=== PATIENT | female | born 1975 | race Caucasian/White ===

== ENCOUNTER → 2017-08-19 | Outpatient (CLI) | payer OTHER, SELFPAY | PROVIDERS: Visit Provider Internal Medicine Gastroenterology | DX: E83.111 Hemochromatosis due to repeated red blood cell transfusions (principal) | CPT/HCPCS: 36415; 81256 ==

== ENCOUNTER → 2017-11-09 07:58 | Outpatient (CLI) | payer OTHER, SELFPAY ==
[2017-11-09 09:45] LABS: Hemoglobin A1C 5.1 % (0.0-7.0)
== END ==
PROVIDERS: Visit Provider Internal Medicine Gastroenterology
DX: R73.09 Other abnormal glucose (principal)
CPT/HCPCS: 36415; 83036

== ENCOUNTER → 2017-12-07 11:03 | Outpatient (POV) | payer OTHER, SELFPAY | PROVIDERS: PCP Emergency Medicine; Visit Provider Physician Assistant | DX: Z00.00 Encounter for general adult medical examination without abnormal findings (principal) ==

== ENCOUNTER → 2018-01-30 18:31 | Outpatient (CLI) | payer OTHER, SELFPAY ==
--- NOTE | 2018-01-30 18:43 | XR_ITS ---
XR foot LT min 3V, XR ankle LT min 3V Ordering Physician: Sylvia Nguyen Patient Age: 42 years: Female HISTORY: ITS.REASON: LT ANKLE PAIN/SWELLING injury Pain throughout the foot with Pain in calcaneus TECHNIQUE: : Left foot 3 views Left ankle 3 views COMPARISON : Previous left foot weightbearing radiograph 05/11/2017. Left ankle study from April 2015 also utilized ==== LEFT FOOT 3 VIEWS No fracture nor dislocation. Toes appear intact. Metatarsals intact. Tarsals satisfactory.. Calcaneus unremarkable. No plantar calcaneal spur. No fracture. There is some mild osseous prominence and exostosis, minimal beaking at the from the dorsal neck of the talus. This is unchanged 2017... Mild soft tissue swelling throughout the foot noted today.Osseous structures at the left foot stable since 2017 studies with no fracture evident ====== LEFT ANKLE 3 VIEWS The left ankle appears stable as well. Intact. No fracture nor dislocation. No significant change since prior study left ankle 2014. The dome of the talus appears intact. Ankle mortise intact. May be slight additional soft tissue swelling about the ankle but is minimal.. Calcaneus appears stable and intact.. Subtalar region appears stable. The small osseous prominent/protuberance at the dorsal neck of talus is unchanged. ... IMPRESSION...... No fracture or dislocation at either the Left Foot nor Left Ankle. Osseous structures appear stable & intact since available previous comparison studies. No acute osseous findings. Understand there is pain at the calcaneus. Calcaneus appears intact on these studies, unchanged Mild soft tissue swelling throughout the foot noted. .
== END ==
PROVIDERS: PCP Emergency Medicine; Visit Provider Nurse Practitioner Family
DX: M79.672 Pain in left foot (principal); M25.572 Pain in left ankle and joints of left foot
CPT/HCPCS: 73610; 73630

== ENCOUNTER → 2019-04-29 09:27 | Outpatient (CLI) | payer OTHER, SELFPAY ==
--- NOTE | 2019-04-29 09:30 | XR_ITS ---
PROCEDURE: XR FOOT LT MIN 3V CLINICAL INDICATION: Left foot pain COMPARISON: [id number] XR foot LT min 3V from 01/30/2018 FINDINGS: No fracture or dislocation. No lytic or blastic change. There is normal mineralization. The joint spaces are well-preserved. No significant degenerative/arthritic changes. No erosive changes evident. Again noted is a small talar beak. There is a small accessory navicular bone a normal variation. There is no evidence of recent or old fracture. Other findings:None. IMPRESSION: No acute findings. Dictated by: Dr. Rizwan Womack MD 04/29/2019 09:[address] Rizwan Womack MD in [place] 04/29/2019 09:51
== END ==
PROVIDERS: PCP Emergency Medicine; Visit Provider Physician Assistant
DX: M79.672 Pain in left foot (principal)
CPT/HCPCS: 73630

== ENCOUNTER → 2019-07-19 10:02 | Outpatient (CLI) | payer OTHER, SELFPAY ==
--- NOTE | 2019-07-19 10:06 | CA_ITS ---
APPROVED REPORT EXAM: Comprehensive 2D, Doppler, and color-flow Echocardiogram Baggage Clerk: Sarah Taylor CRT Ht: 5 ft 0 in Wt: 171lbs BSA: 1.75 BP: 140/85 mmHg Indications: B/S FOR PFO, SOB Echo Enhancing Agent Indication: Rule out Shunt Agent(s) / Amount(s) Used: Agitated Saline 15 cc Comments: NEG B/S 2D Dimensions LVOT 1.73 cm (M/F) 1.5-2.5 M-Mode Dimensions RVDd 1.37 cm (0.9-2.6) LVDd 5.03 cm (3.5-5.7) LVDs 3.28 cm (3.5-5.7) IVSd 0.67 cm (0.6-1.1) PWd 0.38 cm (0.6-1.1) EF (Teich) 63.70% FS 34.80% EDV (Teich) 119.90 mL ESV (Teich) 43.50 mL LV Diastology E/A Ratio 1.45 Mitral Valve MV A Velocity 86.00 (40-130 cm/s) Left Ventricle Left atrium is normal size, left ventricle is normal size, there is no concentric left ventricular hypertrophy, visually estimated ejection fraction 55% with no regional wall motion abnormality, diastolic parameters are within normal range. Right Ventricle Right atrium and right ventricular normal size and contractility. Atria Intra-atrial septum is intact, there is no flow across the interatrial septum, agitated saline contrast study fails to identify intracardiac shunt. Aortic Valve Aortic valve is grossly normal, there is no aortic stenosis or aortic insufficiency. Mitral Valve Mitral valve is grossly normal, there is no mitral stenosis, there is mild mitral regurgitation. Tricuspid Valve Tricuspid valve is grossly normal, there is mild tricuspid regurgitation. Tricuspid regurgitation jet velocity is inadequate for calculation of the right ventricular systolic pressure. Pulmonic Valve Pulmonic valve is poorly visualized. Great Vessels Aortic root is normal size. Pericardium No significant pericardial effusion noted. Conclusion 1. Normal left ventricular size, preserved left ventricular systolic function, visually estimated ejection fraction 55% with no regional wall motion abnormality, diastolic parameters are within normal range. 2. Mild mitral and tricuspid regurgitation. 3. Agitated saline contrast study fails to identify intracardiac shunt. Electronically signed by : Dontae Hare, 07/19/2019 21:41:44
== END ==
PROVIDERS: PCP Emergency Medicine; Visit Provider Physician Assistant
DX: Q21.1 Atrial septal defect (principal); R06.09 Other forms of dyspnea
CPT/HCPCS: 93306

== ENCOUNTER → 2020-01-02 12:58 | Outpatient (CLI) | payer OTHER, SELFPAY ==
--- NOTE | 2020-01-02 13:06 | XR_ITS ---
PROCEDURE: XR KNEE LT 4V CLINICAL INDICATION: Knee pain COMPARISON: [id number] KNEE-LIMITED 2 VIEWS-LT from 10/26/2014 FINDINGS: No fracture or dislocation. No lytic or blastic change. There is normal mineralization. The joint spaces are well-preserved. No significant degenerative/arthritic changes. No erosive changes evident. Other findings:None. IMPRESSION: Negative left knee Dictated by: Dominic Mitchell MD 01/02/2020 13:45 Electronically signed by Dominic Mitchell MD in [place] 01/02/2020 13:45
== END ==
PROVIDERS: PCP Emergency Medicine; Visit Provider Orthopaedic Surgery
DX: M25.562 Pain in left knee (principal)
CPT/HCPCS: 73564

== ENCOUNTER → 2020-01-04 08:30 | Outpatient (CLI) | payer OTHER, SELFPAY ==
--- NOTE | 2020-01-04 08:41 | MR_ITS ---
PROCEDURE: MR KNEE LT WO CON CLINICAL INDICATION: lt knee pain Posterior left knee pain COMPARISON: XR KNEE LT 4V from 01/02/2020 TECHNIQUE: Routine multiplanar multi echo sequences are performed without gadolinium enhancement. FINDINGS: The cruciate ligaments, collateral ligaments, patellar tendon, and quadriceps tendon have an unremarkable appearance. No meniscal tear apparent. There is a small knee joint effusion. No bone marrow edema evident. The patellar cartilage is preserved. No bone marrow edema. IMPRESSION: No evidence of internal derangement. Small knee joint effusion otherwise negative MRI of the left knee. Dictated by: Dominic Mitchell MD 01/06/2020 10:47 Electronically signed by Dominic Mitchell MD in [place] 01/06/2020 10:47
== END ==
PROVIDERS: PCP Emergency Medicine; Visit Provider Orthopaedic Surgery
DX: M25.562 Pain in left knee (principal)
CPT/HCPCS: 73721

== ENCOUNTER → 2020-04-03 13:41 | Outpatient (CLI) | payer OTHER, SELFPAY ==
[2020-04-04 08:30] LABS: Basophils # 0.1 K/mm3 (0-0.2); Eosinophils # 0.3 K/mm3 (0.0-0.4); Eosinophils % 2.5 % (0.1-12.0); Hematocrit 44.6 % (37.0-47.0); Lymphocytes # 2.6 K/mm3 (0.7-4.5); Lymphocytes % 24.7 % (10-50); Mean Corpuscular HGB Conc 33.7 g/dL (31.8-35.4); Mean Corpuscular Hemoglobin 32.7 pg (27.0-31.2); Mean Platelet Volume 9.6 fl (7.4-10.4); Monocytes # 0.5 K/mm3 (0.1-1.0); Monocytes % 4.9 % (1.7-9.3); Neutrophils % 66.9 % (37.0-80.0); Platelet Count 308 K/mm3 (142-424); Red Cell Distribution Width 13.7 % (11.5-17.5); White Blood Count 10.5 K/mm3 (4.8-10.8)
[2020-04-04 08:34] LABS: Chloride 105 mmol/L (98-107); Potassium 4.7 mmoL/L (3.5-5.1); Sodium 138 mmol/L (136-145)
[2020-04-04 08:36] LABS: Alanine Aminotransferase 26 U/L (12-78); Albumin/Globulin Ratio 1.4 (1.1-1.8); Alkaline Phosphatase 69 U/L (38-126); Anion Gap 11.7 mEq/L (5-15); Aspartate Amino Transferase 29 U/L (14-36); Bilirubin,Total 0.5 mg/dl (0.2-1.3); Blood Urea Nitrogen 15 mg/dl (7-17); Carbon Dioxide 26 mmol/L (22.0-30.0); Estimated Glomerular Filt Rate 108 ml/min (>60); GFR (African American) 131 ML/MIN (>60); Globulin 2.8 g/dL (1.3-3.2); Total Protein,Serum 6.8 g/dl (6.3-8.2)
[2020-04-04 08:37] LABS: Calcium 9.5 mg/dl (8.4-10.2); Chol/HDL Ratio 3.6 (1-3.5); Cholesterol 260 mg/dl (140-200); Glucose 93 mg/dl (74-100); HDL Cholesterol 72 mg/dl (40-60)
[2020-04-04 08:48] LABS: Direct LDL Cholesterol 126.17 mg/dL (100-129); Triglycerides 447 mg/dl (30-150)
[2020-04-04 08:54] LABS: Free T4 (Free Thyroxine) 0.97 ng/dl (0.78-2.19)
[2020-04-04 09:08] LABS: Thyroid Stimulating Hormone 1.51 uIU/mL (0.465-4.68)
[2020-04-04 09:33] LABS: Hemoglobin A1C 5.2 % (4.0-6.0)
[2020-04-04 10:09] LABS: 25-OH Vitamin D, Total 23.7 ng/mL (30-100)
== END ==
PROVIDERS: Visit Provider Emergency Medicine
DX: R53.83 Other fatigue (principal); R73.09 Other abnormal glucose; E03.9 Hypothyroidism, unspecified; K59.00 Constipation, unspecified
CPT/HCPCS: 80053; 80061; 82306; 83036; 84439; 84443; 85025

== ENCOUNTER → 2020-05-22 10:44 | Outpatient (CLI) | payer OTHER, SELFPAY ==
[2020-05-22 13:24] LABS: Coronavirus 19 IgG Antibody Negative (Negative); Coronavirus 19 IgM Antibody Negative (Negative)
== END ==
PROVIDERS: Visit Provider Internal Medicine Adolescent Medicine
DX: Z03.818 Encounter for observation for suspected exposure to other biological agents ruled out (principal)
CPT/HCPCS: 36415; 86328

== ENCOUNTER → 2020-08-30 11:04 | Outpatient (CLI) | payer OTHER, SELFPAY ==
--- NOTE | 2020-08-30 11:07 | XR_ITS ---
PROCEDURE: XR FOOT WT BEARING LT 3V CLINICAL INDICATION: pain, instability COMPARISON: CR FTR3 FOOT-RT-3 VIEWS from 10/08/2014 CR FTL3 FOOT-LT-3 VIEWS from 05/11/2017 CR [id number] XR foot LT min 3V from 01/30/2018 CR XR FOOT LT MIN 3V from 04/29/2019 FINDINGS: No fracture or dislocation. No lytic or blastic change. There is normal mineralization. The joint spaces are well-preserved. No significant degenerative/arthritic changes. No erosive changes evident. Other findings:None. IMPRESSION: No acute findings. Dictated by: Dominic Mitchell MD 08/30/2020 17:27 Dominic Mitchell MD in [place] 08/30/2020 17:27
--- NOTE | 2020-08-30 11:07 | XR_ITS ---
PROCEDURE: XR ANKLE WT BEARING LT MIN 3V CLINICAL INDICATION: pain, instability COMPARISON: CR ANKL3 ANKLE-LT-3 VIEWS from 05/03/2015 CR [id number] XR ankle LT min 3V from 01/30/2018 CR XR FOOT WT BEARING LT 3V from 08/30/2020 FINDINGS: No fracture or dislocation. No lytic or blastic change. There is normal mineralization. The joint spaces are well-preserved. No significant degenerative/arthritic changes. No erosive changes evident. Other findings:Small area of exostosis noted at the neck of the talus anteriorly nonspecific. Small bone island is present at the distal fibula laterally. The talar dome has an unremarkable appearance IMPRESSION: As above, no acute finding with no significant change Dictated by: Dominic Mitchell MD 08/30/2020 17:28 Dominic Mitchell MD in [place] 08/30/2020 17:28
== END ==
PROVIDERS: PCP Emergency Medicine; Visit Provider Podiatrist
DX: M79.672 Pain in left foot (principal); M25.372 Other instability, left ankle
CPT/HCPCS: 73610; 73630

== ENCOUNTER → 2020-09-04 14:04 | Outpatient (CLI) | payer OTHER, SELFPAY ==
--- NOTE | 2020-09-04 14:05 | MR_ITS ---
PROCEDURE: MR ANKLE LT WO/W CON CLINICAL INDICATION: left ankle instability LEFT ANKLE INSTABILITY. X2YRS. 17ML PROHANCE GIVEN. LOT:[id number] EXP: AUG 2022 PRIOR X-RAY 08-30-20 COMPARISON: CR XR ANKLE WT BEARING LT MIN 3V from 08/30/2020 CR XR FOOT WT BEARING LT 3V from 08/30/2020 TECHNIQUE: Routine multiplanar multi echo sequences are performed without and with gadolinium enhancement. FINDINGS: The tibiofibular ligaments appear intact. The ATFL is intact. The PT FL also appears intact as the deltoid ligament. No bone marrow edema apparent. The posterior tibialis, flexor digit talus longus and flexor hallucis longus tendons appear intact. Peroneal longus and brevis tendons appear intact. There is a small amount fluid along the peroneal longus tendon posteriorly just distal to the tip the fibula suggesting tenosynovitis. The anterior extensor tendons appear intact.. The Achilles tendon has an unremarkable appearance. No evidence of plantar fasciitis. Small amount of fluid is also noted between the tibialis posterior and flexor digitorum longus. There is a small amount fluid also in the posterior subtalar joint region IMPRESSION: 1. Possible tenosynovitis of the peroneus longus and at the tibialis posterior and flexor digitorum longus 2. No evidence of tendon or ligamentous tear 3. Small amount of nonspecific joint fluid at the talocalcaneal region at the posterior facet and sinus tarsi region Dictated by: Dominic Mitchell MD 09/07/2020 08:18 Dominic Mitchell MD in [place] 09/07/2020 08:18
== END ==
PROVIDERS: PCP Emergency Medicine; Visit Provider Podiatrist
DX: M25.372 Other instability, left ankle (principal); M76.72 Peroneal tendinitis, left leg; Z87.828 Personal history of other (healed) physical injury and trauma
CPT/HCPCS: 73723; A9576

== ENCOUNTER → 2020-11-05 07:59 | Outpatient (CLI) | payer OTHER, SELFPAY ==
[2020-11-05 09:19] LABS: Chloride 106 mmol/L (98-107); Potassium 4.7 mmoL/L (3.5-5.1); Sodium 136 mmol/L (136-145)
[2020-11-05 09:21] LABS: Alanine Aminotransferase 21 U/L (12-78); Aspartate Amino Transferase 28 U/L (14-36); Blood Urea Nitrogen 15 mg/dl (7-17); Erythrocyte Sedimentation Rate 6 mm/hr (0-20); Estimated Glomerular Filt Rate 90 ml/min (>60); GFR (African American) 109 ML/MIN (>60)
[2020-11-05 09:22] LABS: Albumin Level 3.9 g/dl (3.5-5.0); Albumin/Globulin Ratio 1.3 (1.1-1.8); Alkaline Phosphatase 81 U/L (38-126); Anion Gap 8.7 mEq/L (5-15); Bilirubin,Total 0.4 mg/dl (0.2-1.3); Calcium 9.3 mg/dl (8.4-10.2); Carbon Dioxide 26 mmol/L (22.0-30.0); Cholesterol 264 mg/dl (140-200); Glucose 93 mg/dl (74-100); Total Protein,Serum 6.9 g/dl (6.3-8.2)
[2020-11-05 09:23] LABS: Chol/HDL Ratio 5.6 (1-3.5); HDL Cholesterol 47 mg/dl (40-60)
[2020-11-05 09:28] LABS: C-Reactive Protein 2.2 mg/L (0-4)
[2020-11-05 09:38] LABS: Free T4 (Free Thyroxine) 0.83 ng/dl (0.78-2.19)
[2020-11-05 09:53] LABS: Thyroid Stimulating Hormone 3.03 uIU/mL (0.465-4.68)
[2020-11-05 10:09] LABS: Direct LDL Cholesterol < 30.00 mg/dL (100-129); Triglycerides 1932 mg/dl (30-150)
[2020-11-06 14:20] LABS: RA Latex Turbid. <10.0 IU/mL (0.0-13.9); Thyroid Peroxidase Antibodies <9 IU/mL (0-34)
[2020-11-07 16:40] LABS: Antinuclear Antibodies, IFA Positive (.)
[2020-11-08 11:33] LABS: Amylase 55 U/L (30-110); Lipase 75 U/L (23-300)
== END ==
PROVIDERS: Internal Medicine Gastroenterology; Visit Provider Physician Assistant
DX: M25.50 Pain in unspecified joint (principal); R10.11 Right upper quadrant pain; R53.83 Other fatigue; R63.5 Abnormal weight gain
CPT/HCPCS: 36415; 80053; 80061; 82150; 83690; 84439; 84443; 85651; 86038; 86140; 86376; 86431

== ENCOUNTER → 2020-11-12 13:55 | Outpatient (CLI) | payer OTHER, SELFPAY ==
[2020-11-12 15:28] LABS: C-Reactive Protein 2.7 mg/L (0-4)
[2020-11-12 16:14] LABS: Vitamin B12 284 pg/mL (239-931)
[2020-11-14 09:31] LABS: Triiodothyronine (T3) Total 138 ng/dL (71-180)
[2020-11-14 11:21] LABS: Triiodothyronine (T3) Free 3.4 pg/mL (2.0-4.4)
[2020-11-14 12:11] LABS: Antichromatin Antibodies <0.2 AI (0.0-0.9); RA Latex Turbid. 10.1 IU/mL (0.0-13.9); RNP Antibodies <0.2 AI (0.0-0.9); Sjogren's Anti-SS-A <0.2 AI (0.0-0.9); Sjogren's Anti-SS-B <0.2 AI (0.0-0.9)
[2020-11-14 12:36] LABS: Anti-DNA (DS) Ab Qn <1 IU/mL (0-9)
[2020-11-15 14:09] LABS: Thyroid Stimulating Immunoglob <0.10 IU/L (0.00-0.55)
[2020-11-16 14:01] LABS: Anti-Cyclic Citrullinated Pept 12 units (0-19)
== END ==
PROVIDERS: Visit Provider Physician Assistant
DX: E78.2 Mixed hyperlipidemia (principal); R76.8 Other specified abnormal immunological findings in serum
CPT/HCPCS: 36415; 82607; 84445; 84480; 84481; 86140; 86200; 86225; 86235; 86431

== ENCOUNTER → 2020-11-16 09:04 | Outpatient (CLI) | payer OTHER, SELFPAY ==
--- NOTE | 2020-11-16 09:04 | US_ITS ---
PROCEDURE: US THYROID CLINICAL INDICATION: thyromegaly COMPARISON: No exams were available for comparison FINDINGS: Right lobe: The right lobe is 3.8 x 1 x 1.5 cm. There is a mixed cystic and solid 13 x 11 mm nodule in the upper pole. The solid component is slightly hypoechoic. The nodule is well-circumscribed and wider than tall with no obvious calcifications, Ti rads level 3. A 6 mm cyst is present in the mid polar region. An additional 4 mm cyst is present in the mid polar region. A 3 mm hypoechoic nodules present in the lower pole. Left lobe: 3.7 x 0.7 x 1.4 cm. A 6 x 3 mm spongiform nodule is present in the upper pole benign-appearing. 2 mm hypoechoic nodule mid polar region and may be due to small cyst. Four mm cyst in the lower pole. Isthmus: Unremarkable at 3 mm Additional findings: IMPRESSION: There are bilateral thyroid nodules. Dominant nodules on the right in the upper pole at 13 x 11 mm and is T rads level 3. The nodule is less than 2.5 cm. Therefore, follow-up is suggested in 6-12 months. Dictated by: Dominic Mitchell MD 11/16/2020 14:58 Dominic Mitchell MD in [place] 11/16/2020 14:58
== END ==
PROVIDERS: PCP Emergency Medicine; Visit Provider Physician Assistant
DX: E78.2 Mixed hyperlipidemia (principal); R76.8 Other specified abnormal immunological findings in serum; Z79.899 Other long term (current) drug therapy
CPT/HCPCS: 76536

== ENCOUNTER → 2020-11-21 09:56 | Outpatient (CLI) | payer OTHER, SELFPAY ==
[2020-11-21 11:14] LABS: 25-OH Vitamin D, Total 24.4 ng/mL (30-100)
[2020-11-23 16:12] LABS: PTT-LA 42.8 sec (0.0-51.9); dRVVT 42.8 sec (0.0-47.0)
[2020-11-24 14:51] LABS: Lupus Reflex Interpretation Comment: (.)
== END ==
PROVIDERS: Visit Provider Physician Assistant
DX: R76.8 Other specified abnormal immunological findings in serum (principal); R53.83 Other fatigue; E55.9 Vitamin D deficiency, unspecified
CPT/HCPCS: 36415; 82306; 85613

== ENCOUNTER → 2021-01-15 07:42 | Outpatient (CLI) | payer OTHER, SELFPAY ==
[2021-01-15 09:22] LABS: Alanine Aminotransferase 22 U/L (12-78); Albumin Level 4.3 g/dl (3.5-5.0); Albumin/Globulin Ratio 1.9 (1.1-1.8); Alkaline Phosphatase 58 U/L (38-126); Anion Gap 9.6 mEq/L (5-15); Aspartate Amino Transferase 26 U/L (14-36); Bilirubin,Total 0.5 mg/dl (0.2-1.3); Blood Urea Nitrogen 16 mg/dl (7-17); Calcium 9.1 mg/dl (8.4-10.2); Carbon Dioxide 27 mmol/L (22.0-30.0); Chloride 106 mmol/L (98-107); Chol/HDL Ratio 2.6 (1-3.5); Cholesterol 215 mg/dl (140-200); Estimated Glomerular Filt Rate 77 ml/min (>60); GFR (African American) 93 ML/MIN (>60); Globulin 2.3 g/dL (1.3-3.2); Glucose 92 mg/dl (74-100); HDL Cholesterol 82 mg/dl (40-60); Potassium 4.6 mmoL/L (3.5-5.1); Sodium 138 mmol/L (136-145); Total Protein,Serum 6.6 g/dl (6.3-8.2); Triglycerides 143 mg/dl (30-150); VLDL Cholesterol 29 mg/dL (0-40)
[2021-01-15 09:33] LABS: Direct LDL Cholesterol 106.34 mg/dL (100-129)
[2021-01-15 10:11] LABS: Vitamin B12 351 pg/mL (239-931)
== END ==
PROVIDERS: Visit Provider Physician Assistant
DX: E78.5 Hyperlipidemia, unspecified (principal); E53.8 Deficiency of other specified B group vitamins
CPT/HCPCS: 36415; 80053; 80061; 82607

== ENCOUNTER 2021-03-25 15:00 | Outpatient (RCR) | payer OTHER, SELFPAY | END 2021-03-25 15:05 | disposition home or self-care (01) | LOC: PT 15:00 | PROVIDERS: PCP Emergency Medicine; Visit Provider Podiatrist Foot & Ankle Surgery | DX: M25.372 Other instability, left ankle (principal); M79.672 Pain in left foot; M89.8X7 Other specified disorders of bone, ankle and foot | CPT/HCPCS: 20560; 97033; 97035; 97110; 97163 ==

== ENCOUNTER → 2021-05-16 13:04 | Outpatient (CLI) | payer OTHER, SELFPAY ==
--- NOTE | 2021-05-16 13:11 | US_ITS ---
PROCEDURE: US THYROID CLINICAL INDICATION: 6 mth f/u COMPARISON: US US THYROID from 11/16/2020 FINDINGS: Right lobe: 4.1 x 1.3 x 2.4 cm.. Mixed cystic and solid nodule once again noted in the upper pole at 14 x 12 mm and does not appear significantly changed in size. The nodule appears slightly more cystic on today's exam compared to previous study. The nodule is wider than tall is well-defined without calcification. TR level 3 less than 2.5 cm. Annual follow-up suggested. In the mid polar region there is a 6 x 3 mm hypoechoic nodule posteriorly not significantly changed. In the lower pole there is a 6 mm by 3 mm cystic nodule unchanged. A small solid-appearing nodule in the lower pole at 3 mm this slightly unchanged. No new nodules evident. Left lobe: 4.2 x 0.8 x 1.5 cm. Spongiform appearing upper lobe nodule at 4 mm slightly smaller. 7 x 4 mm cystic nodule in the lower pole not significantly changed. 4 x 2 mm hypoechoic nodule inferior aspect unchanged. Isthmus: Unremarkable Additional findings: IMPRESSION: Stable appearance of the thyroid gland. No change multiple small bilateral thyroid nodules. Dominant nodule on the right appears mostly cystic TR level three less than 2.5 cm. Twelve month follow-up suggested. Dictated by: Dominic Mitchell MD 05/16/2021 15:07 Dominic Mitchell MD in [place] 05/16/2021 15:07
== END ==
PROVIDERS: PCP Emergency Medicine; Visit Provider Physician Assistant
DX: E04.1 Nontoxic single thyroid nodule (principal)
CPT/HCPCS: 76536

== ENCOUNTER → 2021-12-04 08:06 | Outpatient (CLI) | payer OTHER, SELFPAY ==
[2021-12-04 08:11] LABS: Microscopic, Urine URINE MICROSCOPIC (MICROSCOPIC)
[2021-12-04 08:29] LABS: Appearance,Urine CLEAR (Clear); Bilirubin,Urine Negative (Negative); Blood, Urine Negative (Negative); Color,Urine YELLOW (Yellow); Glucose,Urine (UA) Negative (Negative); Ketones,Urine Negative (Negative); Leukocyte Esterase,Urine Negative (Negative); Nitrate,Urine POSITIVE (Negative); Protein,Urine Negative (Negative); Specific Gravity, Urine 1.025 (1.005-1.030); Urobilinogen,Urine 0.2 EU/dl (0.2)
[2021-12-04 08:37] LABS: Basophils # 0.1 K/mm3 (0-0.2); Basophils % 1.2 % (0.1-2.0); Eosinophils # 0.2 K/mm3 (0.0-0.4); Eosinophils % 2.6 % (0.1-12.0); Hematocrit 46.9 % (37.0-47.0); Hemoglobin 15.4 g/dL (12.2-16.2); Lymphocytes % 27.7 % (10-50); Mean Corpuscular HGB Conc 32.8 g/dL (31.8-35.4); Mean Corpuscular Hemoglobin 31.2 pg (27.0-31.2); Mean Corpuscular Volume 95.3 fl (81-99); Monocytes # 0.4 K/mm3 (0.1-1.0); Monocytes % 5.5 % (1.7-9.3); Neutrophils # 4.5 K/mm3 (1.8-7.8); Platelet Count 337 K/mm3 (142-424); Red Blood Count 4.92 M/mm3 (4.20-5.40); Red Cell Distribution Width 13.7 % (11.5-17.5); White Blood Count 7.2 K/mm3 (4.8-10.8)
[2021-12-04 09:05] LABS: Bacteria,Urine 2+ /lpf
[2021-12-04 09:10] LABS: Chloride 105 mmol/L (98-107)
[2021-12-04 09:11] LABS: Potassium 3.9 mmoL/L (3.5-5.1); Sodium 139 mmol/L (136-145)
[2021-12-04 09:13] LABS: Blood Urea Nitrogen 12 mg/dl (7-17); Estimated Glomerular Filt Rate 90 ml/min (>60); GFR (African American) 109 ML/MIN (>60)
[2021-12-04 09:14] LABS: Alanine Aminotransferase 38 U/L (12-78); Albumin Level 3.8 g/dl (3.5-5.0); Albumin/Globulin Ratio 1.4 (1.1-1.8); Alkaline Phosphatase 79 U/L (38-126); Anion Gap 7.9 mEq/L (5-15); Aspartate Amino Transferase 32 U/L (14-36); Bilirubin,Total 0.7 mg/dl (0.2-1.3); Calcium 8.6 mg/dl (8.4-10.2); Carbon Dioxide 30 mmol/L (22.0-30.0); Chol/HDL Ratio 3.3 (1-3.5); Cholesterol 214 mg/dl (140-200); Globulin 2.7 g/dL (1.3-3.2); Glucose 87 mg/dl (74-100); HDL Cholesterol 64 mg/dl (40-60); Total Protein,Serum 6.5 g/dl (6.3-8.2); Triglycerides 294 mg/dl (30-150); VLDL Cholesterol 59 mg/dL (0-40)
[2021-12-04 09:25] LABS: Direct LDL Cholesterol 100.99 mg/dL (100-129); Hemoglobin A1C 5.3 % (4.0-6.0)
[2021-12-04 09:44] LABS: Thyroid Stimulating Hormone < 0.02 uIU/mL (0.465-4.68)
== END ==
PROVIDERS: PCP Physician Assistant; Visit Provider Physician Assistant
DX: R35.0 Frequency of micturition (principal); B96.20 Unspecified Escherichia coli [E. coli] as the cause of diseases classified elsewhere; E55.9 Vitamin D deficiency, unspecified
CPT/HCPCS: 36415; 80053; 80061; 81001; 82306; 83036; 84443; 85025; 87086; 87088; 87186

== ENCOUNTER → 2021-12-19 14:00 | Outpatient (CLI) | payer OTHER, SELFPAY ==
--- NOTE | 2021-12-19 14:02 | XR_ITS ---
FINAL REPORT CLINICAL HISTORY: left ankle pain FINDINGS: LEFT ANKLE: Three views of the left ankle were obtained. There is no acute fracture or dislocation. The joint spaces and mortise are intact. There is no soft tissue abnormality. IMPRESSION: No acute process. Reviewed, Interpreted and Dictated by Roney Cohen MD Transcribed by Jed Marley Authenticated by Roney Cohen MD on 12/19/2021 03:28:[address] [facility]
--- NOTE | 2021-12-19 14:02 | XR_ITS ---
FINAL REPORT CLINICAL HISTORY: left foot pain COMPARISON: August 30, 2020 FINDINGS: 3 views of the left foot were obtained. There is no acute fracture or dislocation. The joint spaces are intact. The soft tissues are unremarkable. IMPRESSION: No acute process. Reviewed, Interpreted and Dictated by Roney Cohen MD Transcribed by Jed Marley Authenticated by Roney Cohen MD on 12/19/2021 04:37:45 PM [facility]
== END ==
PROVIDERS: PCP Physician Assistant; Visit Provider Orthopaedic Surgery
DX: M25.572 Pain in left ankle and joints of left foot (principal); M79.672 Pain in left foot
CPT/HCPCS: 73610; 73630

== ENCOUNTER → 2021-12-20 12:07 | Outpatient (CLI) | payer OTHER, SELFPAY ==
--- NOTE | 2021-12-20 12:13 | XR_ITS ---
FINAL REPORT CLINICAL HISTORY: 3 view WB, tendonitis COMPARISON: December 19, 2021 FINDINGS: LEFT FOOT Three views of the left foot demonstrate no acute fracture or dislocation. There is a small ossific protuberance over the dorsal aspect of the talus. The visualized joint spaces are preserved. The soft tissues are unremarkable. IMPRESSION: No acute bony abnormality. Reviewed, Interpreted and Dictated by Roney Cohen MD Transcribed by Sherita Kim Authenticated by Roney Cohen MD on 12/20/2021 01:29:08 PM [facility]
== END ==
PROVIDERS: PCP Physician Assistant; Visit Provider Orthopaedic Surgery
DX: M79.672 Pain in left foot (principal)
CPT/HCPCS: 73630

== ENCOUNTER → 2022-04-30 10:59 | Outpatient (CLI) | payer OTHER, SELFPAY ==
--- NOTE | 2022-04-30 11:01 | US_ITS ---
FINAL REPORT CLINICAL HISTORY: thyroid nodule COMPARISON: 05/16/2021 FINDINGS: THYROID ULTRASOUND Sonographic images of the thyroid was obtained. The right lobe of the thyroid measures 4.5 x 1.7 x 1.3 cm. The is a 15 x 13 x 10 mm nodule that is not significantly changed from the prior exam. It is isoechoic, cystic and solid, TI-RADS category 2. There are multiple other smaller cystic nodules in the right lobe. The left lobe of the thyroid measures 3.7 x 1.5 x 0.8 cm. There is a 6 x 3 x 3 mm nodule in the mid left lobe. It is isoechoic, cystic and solid, TI-RADS category 2. There are other smaller cystic nodules in the left lobe. The isthmus measures 3 mm. IMPRESSION: Overall appearance is stable since the prior exam. Stable nodules as described. Reviewed, Interpreted and Dictated by Magdiel Reaves III, MD Transcribed by Sherita Kim Authenticated and [facility]
== END ==
PROVIDERS: PCP Physician Assistant; Visit Provider Physician Assistant
DX: E04.1 Nontoxic single thyroid nodule (principal)
CPT/HCPCS: 76536

== ENCOUNTER → 2022-07-16 10:21 | Outpatient (CLI) | payer OTHER, SELFPAY ==
--- NOTE | 2022-07-16 10:21 | MR_ITS ---
FINAL REPORT CLINICAL HISTORY: vertigo, listing to left side vertigo , lightheaded, hx of frequent migranes gets a headache after the light headed spells on the left side of head FINDINGS: Multiplanar MR imaging of the brain was performed without contrast. There is no evidence of intracranial hemorrhage or mass. The ventricular size is normal. There is no evidence of shift of the midline structures. No abnormal extra-axial fluid collection is identified. The posterior fossa and brainstem have an unremarkable appearance. No area of abnormal restricted diffusion is identified. Normal major vessel vascular flow voids are seen. There is total opacification of the right maxillary sinus. There is mucosal thickening in several ethmoid air cells. IMPRESSION: No acute intracranial abnormality. Sinusitis. Reviewed, Interpreted and Dictated by Magdiel Reaves III, MD Transcribed by Kati Nassar Authenticated and [facility]
== END ==
PROVIDERS: PCP Physician Assistant; Visit Provider Physician Assistant
DX: R42 Dizziness and giddiness (principal)
CPT/HCPCS: 70551

== ENCOUNTER → 2022-07-22 13:37 | Outpatient (CLI) | payer OTHER, SELFPAY ==
[2022-07-03 18:58] LABS: Basophils # 0.1 K/mm3 (0-0.2); Basophils % 0.9 % (0.1-2.0); Eosinophils # 0.2 K/mm3 (0.0-0.4); Eosinophils % 1.1 % (0.1-12.0); Hematocrit 48.9 % (37.0-47.0); Hemoglobin 15.6 g/dL (12.2-16.2); Lymphocytes # 2.7 K/mm3 (0.7-4.5); Lymphocytes % 18.8 % (10-50); Mean Corpuscular HGB Conc 31.8 g/dL (31.8-35.4); Mean Corpuscular Hemoglobin 31.4 pg (27.0-31.2); Mean Corpuscular Volume 98.7 fl (81-99); Monocytes # 0.7 K/mm3 (0.1-1.0); Monocytes % 4.8 % (1.7-9.3); Neutrophils # 10.9 K/mm3 (1.8-7.8); Neutrophils % 74.4 % (37.0-80.0); Platelet Count 564 K/mm3 (142-424); Red Blood Count 4.96 M/mm3 (4.20-5.40); Red Cell Distribution Width 13.6 % (11.5-17.5); White Blood Count 14.6 K/mm3 (4.8-10.8)
[2022-07-03 21:06] LABS: Alanine Aminotransferase 25 U/L (12-78); Albumin Level 4.5 g/dl (3.5-5.0); Albumin/Globulin Ratio 1.4 (1.1-1.8); Alkaline Phosphatase 122 U/L (38-126); Anion Gap 20.1 mEq/L (5-15); Aspartate Amino Transferase 29 U/L (14-36); Bilirubin,Total 0.4 mg/dl (0.2-1.3); Blood Urea Nitrogen 13 mg/dl (7-17); Calcium 10.2 mg/dl (8.4-10.2); Carbon Dioxide 25 mmol/L (22.0-30.0); Chloride 100 mmol/L (98-107); Chol/HDL Ratio 3.7 (1-3.5); Cholesterol 225 mg/dl (140-200); Estimated Glomerular Filt Rate 107 ml/min (>60); GFR (African American) 130 ML/MIN (>60); Globulin 3.2 g/dL (1.3-3.2); Glucose 85 mg/dl (74-100); HDL Cholesterol 61 mg/dl (40-60); Potassium 4.1 mmoL/L (3.5-5.1); Sodium 141 mmol/L (136-145); Total Protein,Serum 7.7 g/dl (6.3-8.2); Triglycerides 286 mg/dl (30-150); VLDL Cholesterol 57 mg/dL (0-40)
[2022-07-03 21:17] LABS: Direct LDL Cholesterol 112.43 mg/dL (100-129); Total Iron Binding Capacity 322 ug/dL (265-497)
[2022-07-03 21:23] LABS: 25-OH Vitamin D, Total 27.2 ng/mL (30-100)
[2022-07-03 21:34] LABS: Iron 80 ug/dL (37-170)
[2022-07-03 21:37] LABS: Thyroid Stimulating Hormone 2.36 uIU/mL (0.465-4.68)
[2022-07-03 22:13] LABS: Vitamin B12 884 pg/mL (239-931)
[2022-07-03 22:20] LABS: Folate 6.84 ng/mL
== END ==
PROVIDERS: PCP Physician Assistant; Visit Provider Physician Assistant
DX: I10 Essential (primary) hypertension (principal); R42 Dizziness and giddiness; E78.5 Hyperlipidemia, unspecified; E55.9 Vitamin D deficiency, unspecified; Z79.899 Other long term (current) drug therapy
CPT/HCPCS: 80053; 80061; 82306; 82607; 82728; 82746; 83540; 83550; 84443; 85025

== ENCOUNTER 2023-08-31 13:18 | Outpatient (CLI) | payer BC, SELFPAY ==
[2023-08-31 13:51] LABS: Chloride 104 mmol/L (98-107); Potassium 4.4 mmoL/L (3.5-5.1); Sodium 137 mmol/L (136-145)
[2023-08-31 13:53] LABS: Alanine Aminotransferase 41 U/L (12-78); Albumin Level 4.4 g/dl (3.5-5.0); Albumin/Globulin Ratio 1.5 (1.1-1.8); Alkaline Phosphatase 87 U/L (38-126); Anion Gap 14.4 mEq/L (5-15); Aspartate Amino Transferase 34 U/L (14-36); Bilirubin,Total 0.7 mg/dl (0.2-1.3); Blood Urea Nitrogen 15 mg/dl (7-17); Carbon Dioxide 23 mmol/L (22.0-30.0); Estimated Glomerular Filt Rate 107 ml/min (>60); GFR (African American) 129 ML/MIN (>60); Total Protein,Serum 7.4 g/dl (6.3-8.2)
[2023-08-31 13:54] LABS: Calcium 9.2 mg/dl (8.4-10.2); Chol/HDL Ratio 3.6 (1-3.5); Cholesterol 275 mg/dl (140-200); Glucose 97 mg/dl (74-100); HDL Cholesterol 77 mg/dl (40-60); Triglycerides 266 mg/dl (30-150); VLDL Cholesterol 53 mg/dL (0-40)
[2023-08-31 14:01] LABS: C-Reactive Protein 1.2 mg/L (0-4)
[2023-08-31 14:05] LABS: Direct LDL Cholesterol 139.21 mg/dL (100-129)
[2023-08-31 14:17] LABS: Erythrocyte Sedimentation Rate 11 mm/hr (0-20)
[2023-08-31 14:20] LABS: Basophils # 0.1 K/mm3 (0-0.2); Basophils % 0.9 % (0.1-2.0); Eosinophils # 0.2 K/mm3 (0.0-0.4); Hematocrit 49.1 % (37.0-47.0); Hemoglobin 16.1 g/dL (12.2-16.2); Lymphocytes # 2.4 K/mm3 (0.7-4.5); Lymphocytes % 26.3 % (10-50); Mean Corpuscular HGB Conc 32.8 g/dL (31.8-35.4); Mean Corpuscular Hemoglobin 31.8 pg (27.0-31.2); Mean Platelet Volume 9.1 fl (7.4-10.4); Monocytes # 0.5 K/mm3 (0.1-1.0); Monocytes % 5.3 % (1.7-9.3); Neutrophils % 65.5 % (37.0-80.0); Platelet Count 313 K/mm3 (142-424); Red Blood Count 5.07 M/mm3 (4.20-5.40); Red Cell Distribution Width 13.4 % (11.5-17.5); White Blood Count 9.1 K/mm3 (4.8-10.8)
[2023-08-31 14:21] LABS: Hemoglobin A1C 5.1 % (4.0-6.0)
[2023-08-31 14:25] LABS: Thyroid Stimulating Hormone 3.94 uIU/mL (0.465-4.68)
[2023-08-31 15:28] LABS: 25-OH Vitamin D, Total 29.7 ng/mL (30-100)
[2023-08-31 16:15] LABS: Vitamin B12 596 pg/mL (239-931)
[2023-09-01 12:12] LABS: Anti-Centromere B Antibodies <0.2 AI (0.0-0.9); Anti-DNA (DS) Ab Qn <1 IU/mL (0-9); Anti-Jo-1 <0.2 AI (0.0-0.9); Anti-Smith Antibody <0.2 AI (0.0-0.9); Antichromatin Antibodies <0.2 AI (0.0-0.9); Antiscleroderma-70 Antibodies <0.2 AI (0.0-0.9); RNP Antibodies <0.2 AI (0.0-0.9); Sjogren's Anti-SS-A <0.2 AI (0.0-0.9); Sjogren's Anti-SS-B <0.2 AI (0.0-0.9)
== END 2023-08-31 23:59 ==
LOC: LAB.DROPOF 13:20
PROVIDERS: PCP Physician Assistant; Visit Provider Physician Assistant
DX: E78.5 Hyperlipidemia, unspecified (principal); I10 Essential (primary) hypertension; M72.2 Plantar fascial fibromatosis; M25.50 Pain in unspecified joint; R73.9 Hyperglycemia, unspecified; E55.9 Vitamin D deficiency, unspecified
CPT/HCPCS: 80053; 80061; 82306; 82607; 83036; 84443; 85025; 85651; 86140; 86225; 86235

== ENCOUNTER 2023-10-21 11:17 | Outpatient (CLI) | payer BC, SELFPAY ==
[2023-10-21 12:09] LABS: Chloride 101 mmol/L (98-107); Potassium 4.5 mmoL/L (3.5-5.1); Sodium 137 mmol/L (136-145)
[2023-10-21 12:12] LABS: Anion Gap 7.5 mEq/L (5-15); Blood Urea Nitrogen 11 mg/dl (7-17); Carbon Dioxide 33 mmol/L (22.0-30.0); Estimated Glomerular Filt Rate 89 ml/min (>60); GFR (African American) 108 ML/MIN (>60); Glucose 75 mg/dl (74-100)
[2023-10-21 18:34] LABS: Creatine Kinase > 1600 U/L (30-135)
== END 2023-10-21 23:59 ==
LOC: LAB.DROPOF 11:17
PROVIDERS: PCP Physician Assistant; Visit Provider Physician Assistant
DX: R74.8 Abnormal levels of other serum enzymes (principal); Z79.899 Other long term (current) drug therapy
CPT/HCPCS: 80048; 82550

== ENCOUNTER 2023-10-28 11:14 | Outpatient (CLI) | payer BC, SELFPAY ==
[2023-10-28 11:32] LABS: Anion Gap 10.5 mEq/L (5-15); Blood Urea Nitrogen 14 mg/dl (7-17); Calcium 9.1 mg/dl (8.4-10.2); Carbon Dioxide 27 mmol/L (22.0-30.0); Chloride 106 mmol/L (98-107); Creatine Kinase 848 U/L (30-135); Estimated Glomerular Filt Rate 106 ml/min (>60); GFR (African American) 129 ML/MIN (>60); Glucose 90 mg/dl (74-100); Potassium 4.5 mmoL/L (3.5-5.1); Sodium 139 mmol/L (136-145)
== END 2023-10-28 23:59 ==
LOC: LAB.DROPOF 11:14
PROVIDERS: PCP Physician Assistant; Visit Provider Physician Assistant
DX: M62.82 Rhabdomyolysis (principal)
CPT/HCPCS: 80048; 82550

== ENCOUNTER 2025-04-14 14:01 | Outpatient (CLI) | payer BC, SELFPAY ==
--- OUTSIDE RECORDS SUMMARY | 2025-04-14 14:04 | XMS_ITS | Referral Summary ---
Author Organization [employer] ([place], [place], [place], [place]) Address [address] [place] [address] Care Team Providers Care Insurance Sales Professional Name Role Phone TitusHeather ADIEL Primary Care Provider [phone] Social History Tobacco Use Types Packs/Day Years Used Date Smoking Tobacco: Never Assessed Employment Answer Date Recorded Help finding and keeping a job Not on file 0 10/08/2023 Family and Community Support Answer Dm e Recorded Help with Day to Day Activities Not on file 10/08/2023 Feeling Lonely or Isolated Not on file 10/08 Educational Attainment Answer Date Yash rded Speak language other than Guyanese at home Not on file 10/08/2023 Want help with school or training Not on file 10/08/2023 Substance Use Answer Date Recorded Used prescription meds for non-medical reasons N ot on file 10/08/2023 Used illegal drugs past 12 months Not on file 10/08/2023 Comments Unknown Sex and Gender Information Value Date Recorded Sex Assigned at Female 02/18/2022 7:52 PM CDT Legal Sex Female 7:52 PM CDT Gender Identity Female 02/18/2022 7:52 PM CDT Sexual Orientation Not on file Plan of Treatment Upcoming Encounters Date Type Department Care Team (Late st Contact Info) Description 01/17/2026 7:30 AM EDT Appointment [address] [address] Procedures Procedure Name Priority Date/Time Associated Diagnosis Comments MM SCREENING BILATERAL WITH IMPLANTS WITH DIANNE WITH CAD Routine 01/11/2025 8:03 AM EDT Screening for breast cancer from Last 3 Months or Most Recently Relevant to Health Maintenance Results * MM Screening Bilateral With Implants w DIANNE w CAD (01/11/2025 8:03 AM EDT) Anatomical Region Laterality Modality Breast Bilateral Mammography 01/24/2025 7:22 AM EDT Impressions 01/24/2025 7:23 AM EDT FINAL IMPRESSION: ACR BI-RADS 1: Negative. RECOMMENDATIONS: Annual screening mammography. A letter including results and recommendations was sent to the patient. Density notification was included for all patients. Patient information was entered into a reminder system with a target date for the next mammogram. At our facility, a [place] marker is positioned over a visible skin lesion and a linear marker is used to indicate a scar. A triangular marker is placed on a self reported palpable finding. Narrative 01/24/2025 7:23 AM EDT PROCEDURE: Digital screening mammogram with Digital Breast Tomosynthesis (DBT). REASON FOR EXAM: Routine screening. FAMILY HISTORY: There is no family history of breast cancer. COMPARISON STUDIES: [facility] [id number] FINDINGS: Craniocaudal and mediolateral oblique images of both breasts were obtained with implants in place and displaced using 2 D imaging. In addition, DBT images of both breasts were performed with implants displaced in the craniocaudal and mediolateral oblique projections. Synthesized views were reconstructed from DBT data. Bilateral retropectoral silicone implants are present. There is no evidence of fracture. There are scattered areas of fibroglandular density. No change. There is no evidence of dominant mass, architectural distortion, or suspicious calcifications. The mammogram was reviewed with the benefit of computer aided detection. Heather Qureshi PA-C IMG MAMMOGRAPHY ORDERABLES Fi nal Result from Last 3 Months or Most Recently Relevant to Health Maintenance Insurance BLUE CROSS/BLUE SHIELD Care Teams Insurance Sales Professional Relationship Specialty Start Date End Date Heather Qureshi PA-C [address] [place] [address] PCP - General Physician Farm Worker 12/22/23
--- OUTSIDE RECORDS SUMMARY | 2025-04-14 14:04 | XMS_ITS | Clinical Summary ---
Author Organization [employer] ([place], [place], [place], [place]) Address [address] [place] [address] Care Team Providers Care Supervisor Plasma Name Role Phone TitusHeather ADIEL Primary Care Provider [phone] Social History Tobacco Use Types Packs/Day Years [...] Date Yash rded Speak language other than Citizen Of [place] at home Not on file 10/08/2023 Want [...] Info) Description 01/17/2026 7:30 AM EDT Appointment [address] [address] Health Maintenance Due Date Last Done Comments CT Colonography 1974 Colonoscopy 1974 Colorectal Cancer Screening 1974 FOBT/FIT 1974 Fit-DNA (Cologuard) 1974 Sigmoidoscopy 1974 Depression Screening (12+) 1986 Tobacco Cessation Counseling and Screening (12+) 1986 HIV Screening 1989 Hepatitis C Screening 1992 Pap Smear 10/26/1995 Lipid Panel 10/26/2019 COVID-19 VACCINE ( season) 2024 06/25/2021, 09/21/2020, 08/22/2020 Pneumococcal 50+ years (1 of 1 - PCV) 2024 Shingles Vaccine (Zoster) (1 of 2) 2024 Influenza Vaccine (#1) 2025 Breast Cancer Screening 01/11/2027 01/11/2025, 12/21 DTAP/TDAP/TD VACCINES (2 - T d or Tdap) 11/04/2034 11/04/2024 Procedures Procedure Name Priority Date/Time Associated Diagnosis [...] the next mammogram. At our facility, a [place] marker is positioned over a visible skin lesion and a linear marker is used to indicate a scar. A triangular marker is placed on a self reported palpable finding. Narrative 01/24/2025 7:23 AM EDT PROCEDURE: Digital screening mammogram with Digital Breast Tomosynthesis (DBT). REASON FOR EXAM: Routine screening. FAMILY HISTORY: There is no family history of breast cancer. COMPARISON STUDIES: [facility] [id number] FINDINGS: Craniocaudal and mediolateral oblique images of [...] Maintenance Insurance BLUE CROSS/BLUE SHIELD Care Teams Supervisor Plasma Relationship Specialty Start Date End Date Heather Qureshi PA-C [address] [id number] PCP - General Physician Steam Box Operator 12/22/23
--- OUTSIDE RECORDS SUMMARY | 2025-04-14 14:04 | XMS_ITS | Encounter Summary ---
Author Organization [employer] ([place], [place], [place], [place]) Address [address] [place] [address] Care Team Providers Care Customs Appraiser Name Role Phone Heather Qureshi PA-C Primary Care Provider [phone] Reason for Referral * Mammography (Routine) - Authorized Specialty Diagnoses / Procedures Referred By Thanh guillory Referred To Contact Radiology Diagnoses Visit for screening mammogram Procedures MM Screening Bilateral With Implants w DIANNE w CAD Heather Qureshi PA-C [address] [place] [address] Phone: tel: fax: [facility] [address] [place] [address] Phone: tel: fax: Referral ID Status Reason Start Date Expiration Date V isits Requested Visits Authorized [id number] Authorized 01/17/2026 01/17/2027 1 1 Encounter Details Date Type Department Care Team (Late st Contact Info) Description 01/11/2025 Outside Orders [facility] [address] [facility] [address] [facility] [place] [address] Heather Qureshi PA-C [address] [place] [address] Visit for screening mammogram (Primary Dx) Social History Tobacco Use Types Packs/Day Years [...] Date Yash rded Speak language other than Macanese at home Not on file 10/08/2023 Want [...] PM CDT Sexual Orientation Not on file documented as of this encounter Plan of Treatment Upcoming Encounters Date Type Department Care Team (Late st Contact Info) Description 01/17/2026 7:30 AM EDT Appointment [address] [address] Scheduled Orders Name Type Priority Associated Diagnoses Orde r Schedule MM Screening Bilateral With Implants w DIANNE w CAD Imaging Routine Visit for screening mammogram Expected: 01/17/2026, Expires: 01/17/2027 documented as of this encounter Visit Diagnoses Diagnosis Visit for screening mammogram- Primary documented in this encounter Care Teams Customs Appraiser Relationship Specialty Start Date End Date Heather Qureshi, PAAdolfo [address] [place] [address] PCP - General Physician Career Development Coordinator 12/22/23 documented as of this encounter
== END 2025-04-14 23:59 | disposition home or self-care (01) ==
LOC: LAB 14:02
PROVIDERS: PCP Physician Assistant; Visit Provider Obstetrics & Gynecology
DX: R53.83 Other fatigue (principal)
CPT/HCPCS: 36415; 82670; 83001; 83002